=== PATIENT | male | born 1980 | race Hispanic/Latino ===

== ENCOUNTER 2021-11-10 06:40 | Emergency (ER) | payer SELFPAY ==
[2021-11-10] MEDS ORDERED: Ondansetron PF 4 MG/2 ML Vial ONE (07:34)
[2021-11-10] MEDS ORDERED: Ketorolac Tromethamine 30 MG/ML VIAL ONE (07:34)
[2021-11-10 07:44] LABS: Hemoglobin 15.8 g/dL (13.5-17.5); Mean Corpuscular HGB CONC 34.3 g/dL (32.0-36.0); Mean Corpuscular Hemoglobin 30.6 pg (27.0-33.0); Mean Corpuscular Volume 89.2 fl (81.2-95.1); Mean Platelet Volume 9.7 fl (7.4-10.4); Platelet Count 247 10x3/uL (150-450); RBC Distribution Width 12.5 % (11.5-14.5); Red Blood Cell (RBC) Count 5.17 10x6/uL (4.32-5.72); White Blood Cell (WBC) Count 21.5 10x3/uL (3.5-10.5)
[2021-11-10 07:45] LABS: MDiff Complete? YES
[2021-11-10 07:55] LABS: ALT (SGPT) 22 U/L (8-55); AST (SGOT) 23 U/L (5-34); Albumin 4.2 g/dL (3.5-5.0); Alkaline Phosphatase 75 U/L (40-110); Anion Gap 12 mmol/L (10-20); BUN (Urea Nitrogen) 13 mg/dL (8.9-20.6); Bilirubin, Total 0.6 mg/dL (0.2-1.2); Calc. Creatinine Clearance 0 mL/min (70-130); Calcium 9.6 mg/dL (7.8-10.44); Carbon Dioxide 25 mmol/L (22-29); Chloride 105 mmol/L (98-107); Glucose 107 mg/dL (70-105); Lipase 29 U/L (8-78); Potassium 3.5 mmol/L (3.5-5.1); Protein, Total 7.2 g/dL (6.0-8.3); Sodium 138 mmol/L (136-145)
[2021-11-10 08:03] LABS: Lymphocytes 14 % (21-51); Monocytes 9 % (0-10); Neutrophil 77 % (42-75)
[2021-11-10 08:04] LABS: Platelet Morphology Comment Appears Adequate; RBC Morphology Normal
[2021-11-10 08:22] LABS: Bilirubin Neg (Negative); Blood, Urine 25 (Negative); Clarity Clear (Clear); Glucose, Urine (Dipstick) Normal (Negative); Ketone, Urine Negative (Negative); Leukocyte Negative (Negative); Nitrite Negative (Negative); Protein, Urine (Dipstick) 15 mg/dl (Neg-Trace); Urobilinogen Normal mg/dL (Less than 2)
[2021-11-10 08:39] LABS: RBC/HPF 0-3 HPF (0-3); Squamous Epithelial 0-3 HPF (0-3); WBC/HPF 0-3 HPF (0-3)
[2021-11-10 08:40] LABS: Bacteria/HPF Rare-Few HPF (None Seen); Mucous/LPF 1+ LPF (<2+)
== END 2021-11-10 11:08 | disposition home or self-care (01) ==
LOC: CSHERS 06:40
DX: N41.9 Inflammatory disease of prostate, unspecified (principal); F17.210 Nicotine dependence, cigarettes, uncomplicated
CPT/HCPCS: 74177; 80053; 81003; 81015; 83690; 85025; 96374; 96375; J1885; J2405

== ENCOUNTER 2022-03-13 11:32 | Emergency (ER) | payer BC, SELFPAY ==
[2022-03-13] MEDS ORDERED: Ketorolac Tromethamine 30 MG/ML VIAL ONE (13:47)
[2022-03-13 13:52] LABS: #Basophils 0.1 10x3/uL (0.0-0.2); #Eosinphils 0.3 10x3/uL (0.0-0.5); #Monocytes 0.6 10x3/uL (0.0-1.1); #Neutrophils 5.3 10x3/uL (1.5-8.4); %Basophils 0.8 % (0.0-2.0); %Eosinophils 3.2 % (0.0-6.0); %Lymphocytes 31.9 % (18.0-47.0); %Monocytes 6.7 % (0.0-10.0); %Neutrophils 56.6 % (40.0-75.0); Hemoglobin 14.9 g/dL (13.5-17.5); Mean Corpuscular HGB CONC 33.9 g/dL (32.0-36.0); Mean Corpuscular Hemoglobin 30.7 pg (27.0-33.0); Mean Corpuscular Volume 90.3 fl (81.2-95.1); Mean Platelet Volume 9.4 fl (7.4-10.4); Platelet Count 226 10x3/uL (150-450); RBC Distribution Width 12.1 % (11.5-14.5); Red Blood Cell (RBC) Count 4.86 10x6/uL (4.32-5.72); White Blood Cell (WBC) Count 9.3 10x3/uL (3.5-10.5)
[2022-03-13 14:07] LABS: ALT (SGPT) 16 U/L (8-55); AST (SGOT) 16 U/L (5-34); Albumin 4.1 g/dL (3.5-5.0); Alkaline Phosphatase 61 U/L (40-110); Anion Gap 9 mmol/L (10-20); BUN (Urea Nitrogen) 10 mg/dL (8.9-20.6); Bilirubin, Total 0.3 mg/dL (0.2-1.2); Calc. Creatinine Clearance 0 mL/min (70-130); Calcium 9.4 mg/dL (7.8-10.44); Carbon Dioxide 27 mmol/L (22-29); Chloride 106 mmol/L (98-107); Estimated GFR 113; Globulin 2.8 g/dL (2.4-3.5); Glucose 93 mg/dL (70-105); Protein, Total 6.9 g/dL (6.0-8.3); Sodium 138 mmol/L (136-145)
== END 2022-03-13 15:30 | disposition home or self-care (01) ==
LOC: CSHERS 11:32
DX: K40.90 Unilateral inguinal hernia, without obstruction or gangrene, not specified as recurrent (principal); F17.210 Nicotine dependence, cigarettes, uncomplicated
CPT/HCPCS: 74177; 80053; 85025; 96374; J1885

== ENCOUNTER 2022-05-03 12:15 | Emergency (ER) | payer BC ==
[~2022-05-03 12:15] MED LIST: Iopamidol 300 61% 100 ML VIAL FS ONE
[2022-05-03] MEDS ORDERED: Ketorolac Tromethamine 30 MG/ML VIAL ONE (13:53)
[2022-05-03] MEDS ORDERED: Ondansetron PF 4 MG/2 ML Vial ONE (13:53)
[2022-05-03 14:06] LABS: #Basophils 0.1 10x3/uL (0.0-0.2); #Eosinphils 0.2 10x3/uL (0.0-0.5); #Monocytes 0.6 10x3/uL (0.0-1.1); %Basophils 0.7 % (0.0-2.0); %Eosinophils 2.1 % (0.0-6.0); %Lymphocytes 33.6 % (18.0-47.0); %Monocytes 6.7 % (0.0-10.0); Hemoglobin 15.5 g/dL (13.5-17.5); Mean Corpuscular Hemoglobin 30.8 pg (27.0-33.0); Mean Corpuscular Volume 87.9 fl (81.2-95.1); Mean Platelet Volume 9.5 fl (7.4-10.4); Platelet Count 244 10x3/uL (150-450); RBC Distribution Width 12.4 % (11.5-14.5); Red Blood Cell (RBC) Count 5.04 10x6/uL (4.32-5.72); White Blood Cell (WBC) Count 8.9 10x3/uL (3.5-10.5)
[2022-05-03 14:26] LABS: ALT (SGPT) 16 U/L (8-55); AST (SGOT) 19 U/L (5-34); Albumin 4.1 g/dL (3.5-5.0); Alkaline Phosphatase 70 U/L (40-110); Anion Gap 12 mmol/L (10-20); BUN (Urea Nitrogen) 9 mg/dL (8.9-20.6); Bilirubin, Total 0.5 mg/dL (0.2-1.2); Calc. Creatinine Clearance 0 mL/min (70-130); Calcium 9.1 mg/dL (7.8-10.44); Carbon Dioxide 24 mmol/L (22-29); Chloride 105 mmol/L (98-107); Estimated GFR 118; Glucose 95 mg/dL (70-105); Lipase 30 U/L (8-78); Potassium 3.6 mmol/L (3.5-5.1); Protein, Total 7.1 g/dL (6.0-8.3); Sodium 137 mmol/L (136-145)
[2022-05-03 14:42] LABS: Bilirubin Neg (Negative); Blood, Urine 50 (Negative); Clarity Cloudy (Clear); Glucose, Urine (Dipstick) Normal (Negative); Ketone, Urine Negative (Negative); Leukocyte Negative (Negative); Nitrite Negative (Negative); Protein, Urine (Dipstick) Negative (Neg-Trace); Urobilinogen Normal mg/dL (Less than 2); pH, Urine 6.5 (5.0-9.0)
[2022-05-03 14:49] LABS: Bacteria/HPF 1+ HPF (None Seen); Mucous/LPF 2+ LPF (<2+); Squamous Epithelial 0-3 HPF (0-3); WBC/HPF 0-3 HPF (0-3)
== END 2022-05-03 15:34 | disposition home or self-care (01) ==
LOC: CSHERS 12:15
DX: K92.1 Melena (principal); R10.32 Left lower quadrant pain; F17.210 Nicotine dependence, cigarettes, uncomplicated
CPT/HCPCS: 74177; 80053; 81003; 81015; 83690; 85025; 96374; 96375; J1885; J2405; Q9967

== ENCOUNTER 2023-02-05 12:52 | Emergency (ER) | payer SELFPAY | END 2023-02-05 14:19 | disposition home or self-care (01) | LOC: CSHERS 12:52 | DX: M25.512 Pain in left shoulder (principal); F17.210 Nicotine dependence, cigarettes, uncomplicated ==

== ENCOUNTER 2025-06-17 09:47 | Emergency (ER) | payer SELFPAY ==
[2025-06-17] MEDS ORDERED: Ketorolac Tromethamine 30 MG (1 mL) VIAL ONE (10:38)
== END 2025-06-17 10:53 | disposition home or self-care (01) ==
LOC: CSHERS 09:47
DX: S29.012A Strain of muscle and tendon of back wall of thorax, initial encounter (principal); M62.838 Other muscle spasm; F17.210 Nicotine dependence, cigarettes, uncomplicated; X58.XXXA Exposure to other specified factors, initial encounter
CPT/HCPCS: 96372; 99283; J1885